=== PATIENT | male | born 1930 | race Caucasian/White ===

== ENCOUNTER 2017-03-10 09:51 | Emergency (ER) | payer MEDICARE, BC ==
[2017-03-10] MEDS ORDERED: Sterile Water 40 ML ONE (12:54)
[2017-03-10 13:49] LABS: Bilirubin Negative (Negative); Blood, Urine Large (Negative); Glucose, Urine (Dipstick) Negative (Negative); Ketone, Urine Negative (Negative); Nitrite Negative (Negative); Protein, Urine (Dipstick) 100 mg/dL (Neg-Trace); Urobilinogen 0.2 mg/dL (0.2-1.0)
[2017-03-10 13:53] LABS: Bacteria/HPF None Seen HPF (None Seen); WBC/HPF 21-50 HPF (0-3)
[2017-03-10 14:12] LABS: Hyaline Casts/LPF 0-3 HYALINE CAST LPF (0-3 Hyaline); RBC/HPF GREATER THAN 50-TNTC HPF (0-3); Transitional Epithelial 0-3 HPF (0-3); Yeast-All Forms None Seen HPF (None Seen)
== END 2017-03-10 14:30 | disposition home or self-care (01) ==
LOC: ERS 09:51
DX: T83.091A Other mechanical complication of indwelling urethral catheter, initial encounter (principal); E78.00 Pure hypercholesterolemia, unspecified; E03.9 Hypothyroidism, unspecified; I10 Essential (primary) hypertension; F32.9 Major depressive disorder, single episode, unspecified; Z86.73 Personal history of transient ischemic attack (TIA), and cerebral infarction without residual deficits
CPT/HCPCS: 51702; 81003; 81015; 87077; 87086; 87186; A4216

== ENCOUNTER 2017-05-17 14:56 | Outpatient (CLI) | payer MEDICARE, BC ==
[2017-05-17 16:28] LABS: Hemoglobin 14.9 g/dL (14.0-18.0); Mean Corpuscular Hemoglobin 33.5 pg (27.0-31.0); Mean Corpuscular Volume 98.4 fl (80.0-94.0); Mean Platelet Volume 7.1 fL (7.4-10.4); Platelet Count 152 thou/uL (130-400); RBC Distribution Width 11.8 % (11.5-14.5); Red Blood Cell (RBC) Count 4.44 mill/uL (4.70-6.10); White Blood Cell (WBC) Count 7.5 thou/uL (4.8-10.8)
[2017-05-17 16:36] LABS: INR-International Normal Ratio 1.1; PTT 30.5 SEC (22.9-36.1); Prothrombin Time 14.8 SEC (12.0-14.7)
[2017-05-17 16:49] LABS: Anion Gap 14 mmol/L (10-20); BUN (Urea Nitrogen) 29 mg/dL (8.4-25.7); Calc. Creatinine Clearance 0 mL/min (70-130); Calcium 9.5 mg/dL (7.8-10.44); Carbon Dioxide 23 mmol/L (23-31); Chloride 110 mmol/L (98-107); Estimated GFR-MDRD Greater than 90; Glucose 94 mg/dL (83-110); Potassium 4.2 mmol/L (3.5-5.1); Sodium 143 mmol/L (136-145)
== END 2017-05-17 14:57 | disposition home or self-care (01) ==
LOC: LABBT 14:56
PROVIDERS: ATTEND Urology
DX: Z01.812 Encounter for preprocedural laboratory examination (principal); N32.0 Bladder-neck obstruction; R33.8 Other retention of urine; N32.2 Vesical fistula, not elsewhere classified
CPT/HCPCS: 87077; 87086; 87186; 93005; 93010

== ENCOUNTER 2017-06-27 10:05 | Outpatient (CLI) | payer MEDICARE, BC ==
[2017-06-27 11:52] LABS: Hemoglobin 14.5 g/dL (14.0-18.0); Mean Corpuscular HGB CONC 34.1 g/dL (32.0-36.0); Mean Corpuscular Hemoglobin 33.5 pg (27.0-31.0); Mean Corpuscular Volume 98.2 fl (80.0-94.0); Mean Platelet Volume 6.7 fL (7.4-10.4); Platelet Count 183 thou/uL (130-400); RBC Distribution Width 11.5 % (11.5-14.5); Red Blood Cell (RBC) Count 4.32 mill/uL (4.70-6.10); White Blood Cell (WBC) Count 6.2 thou/uL (4.8-10.8)
[2017-06-27 11:56] LABS: INR-International Normal Ratio 1.1; Prothrombin Time 14.7 SEC (12.0-14.7)
[2017-06-27 12:14] LABS: Anion Gap 10 mmol/L (10-20); BUN (Urea Nitrogen) 24 mg/dL (8.4-25.7); Calc. Creatinine Clearance 0 mL/min (70-130); Calcium 9.6 mg/dL (7.8-10.44); Carbon Dioxide 26 mmol/L (23-31); Chloride 109 mmol/L (98-107); Estimated GFR-MDRD 81; Glucose 84 mg/dL (83-110); Potassium 4.2 mmol/L (3.5-5.1); Sodium 141 mmol/L (136-145)
== END 2017-06-27 10:06 | disposition home or self-care (01) ==
LOC: LABBT 10:05
PROVIDERS: ATTEND Urology
DX: Z01.812 Encounter for preprocedural laboratory examination (principal); N32.0 Bladder-neck obstruction; R33.9 Retention of urine, unspecified
CPT/HCPCS: 80048; 85027; 85610

== ENCOUNTER 2017-07-04 06:12 | Inpatient (IN) | payer MEDICARE, BC ==
[2017-07-04] MEDS ORDERED: Levofloxacin 500 mg/D5W 100 ml Premix Bag ONE (06:33)
[2017-07-04] MEDS ORDERED: Vancomycin HCl 1.5 GM in Sodium Chloride 0.9% 250 ML 300 ML IVPB SCH (07:00)
[2017-07-04] MEDS ORDERED: Fentanyl 100 MCG/2 ML VIAL ONE (07:05)
[2017-07-04] MEDS ORDERED: Furosemide 20 MG/2 ML VIAL ONE (10:11)
[2017-07-04] MEDS ORDERED: Acetaminophen 500 MG TAB PO PRN (10:29)
[2017-07-04] MEDS ORDERED: B & O PR PRN (10:35)
[2017-07-04] MEDS ORDERED: Promethazine HCl 25 MG/ML VIAL SLOW IVP PRN (11:00)
[2017-07-04] MEDS ORDERED: Promethazine HCl 25 MG/ML VIAL IM PRN (11:00)
[2017-07-04] MEDS ORDERED: Ondansetron HCl/PF 4 MG/2 ML Vial IVP PRN (11:00)
[2017-07-04 11:12] LABS: Hemoglobin 12.2 g/dL (14.0-18.0)
[2017-07-04] MEDS ORDERED: Hydrocortisone 1% Cream 30 GM TUBE TOP PRN (11:15)
[2017-07-04 11:32] LABS: ALT (SGPT) 12 U/L (8-55); AST (SGOT) 16 U/L (5-34); Albumin 3.3 g/dL (3.4-4.8); Alkaline Phosphatase 43 U/L (40-150); Anion Gap 9 mmol/L (10-20); BUN (Urea Nitrogen) 24 mg/dL (8.4-25.7); Bilirubin, Total 0.7 mg/dL (0.2-1.2); Calc. Creatinine Clearance 72 mL/min (70-130); Calcium 8.1 mg/dL (7.8-10.44); Carbon Dioxide 24 mmol/L (23-31); Chloride 112 mmol/L (98-107); Estimated GFR-MDRD 83; Globulin 1.7 g/dL (2.4-3.5); Glucose 104 mg/dL (83-110); Potassium 4.7 mmol/L (3.5-5.1); Sodium 140 mmol/L (136-145)
--- NOTE | 2017-07-04 13:22 | OP ---
DATE OF PROCEDURE: 07/04/2017 PREOPERATIVE DIAGNOSES: Urinary retention, bladder outlet obstruction. POSTOPERATIVE DIAGNOSES: Urinary retention, bladder outlet obstruction. PROCEDURE PERFORMED: Cystoscopy, TURP. SURGEON: Dr. Michael Chan. ANESTHETIC: General. ESTIMATED BLOOD LOSS: Probably 250 mL. PATHOLOGY SENT: Prostatic chips. DRAINS PLACED: 22 [place] 3-way with 60 mL in the balloon hooked up to continuous bladder irrigation. FINDINGS: There is no evidence of stricture disease. The bladder was free of tumor, foreign body, o r stone. There was a very large trilobar BPH with a very, very large median lobe and intravesical ex tension. We resected the median lobe and lobe, this took 2 hours though we did not start righ t lobe. OPERATIVE TECHNIQUE: After obtaining written and verbal consent from the patient after receiving IV antibiotics, he was taken to the operating suite. He was placed in the supine position on the [facility] ent table. PlexiPulses were placed on his lower extremities and turned on. He was given a general a nesthetic, oral intubation, placed in the dorsal lithotomy position and sterilely prepped and draped. Cystoscopy was performed with a 22-[place] sheath. This was well lubricated and passed under direct vision through the male urethra and into the urinary bladder with aid of a video camera and monitor and 30 degree lens. The bladder was filled and emptied a number of times and examined with both a 30 and 70 degree lens. A 24-[place] resectoscope sheath was passed with the visual obturator and 30 deg ree lens into the bladder. An [employer] resectoscope with a gyrus cutting loop and a gyrus generator were used. A 30 degree lenses were used. Landmarks including the ureteral orifices, bladder neck, a nd verumontanum were identified. We very carefully resected the large intravesical lobe off of the b ladder neck and out of the bladder and then we resected the floor from the 5 o'clock to 7 o'clock pos ition. This was taken from bladder neck to just proximal to the verumontanum. Coagulating current w as used to obtain hemostasis. The left lobe was taken down from the 12 o'clock position to the 5 o'c lock position with the same margins. Electrocautery was used to control hemostasis. We elicked out a great number of times because of the number of chips that were present. At this point, there was 2 hours of resection time, so we did not start the right lobe. We repeated cystoscopy. There was no evidence of chips or clots in the bladder. Ureteral orifices and trigone were in normal position and uninjured. Meza catheter was placed with the aid of a catheter guide. Balloon was inflated with 6 0 mL, it was hand irrigated. It was light pink. He was taken out of dorsal lithotomy position. The catheter was placed on his right thigh on mild traction. He was awakened, extubated, and taken by dasha bernardo to the recovery room.
[2017-07-04] MEDS ORDERED: PROPOFOL 200 MG/20 ML VIAL ONE (13:46)
[2017-07-04] MEDS ORDERED: Dexamethasone 20 MG/5 ML VIAL ONE (13:46)
[2017-07-04] MEDS ORDERED: ePHEDrine/0.9% NaCl/PF SYRINGE 50 mg/10 ml ONE (13:46)
[2017-07-04] MEDS ORDERED: Glycopyrrolate 0.2 MG/ML 5 ML SYRINGE ONE (13:46)
[2017-07-04] MEDS ORDERED: Ondansetron HCl/PF 4 MG/2 ML Vial ONE (13:46)
[2017-07-04] MEDS ORDERED: Lidocaine 1% PF 5 ML VIAL ONE (13:46)
--- NOTE | 2017-07-04 15:28 | CON ---
DATE OF CONSULTATION: 07/04/[address] Michael Chan. HISTORY OF PRESENT ILLNESS: The patient is postop transurethral resection of the prostate and cystos copy. Patient's problems began when he had a hernia surgery several months ago which was complicated by urinary retention, necessity of issuing an indwelling Meza catheter for hydronephrosis. He has eventually required prostate surgery for relief of the obstruction. He has had no fever, no chills, no chest pain, no shortness of breath, no nausea. PAST MEDICAL HISTORY: He has had situational depression over this period of time. He has hypertensi on, coronary artery disease, post-PCI 5-6 years ago, and dyslipidemia. He had CVA 9 months ago. We left him with some very minor residual right-sided weakness. He has chronic back pain. CURRENT MEDICATIONS: Include Lexapro 20 mg a day, finasteride 5 mg a day, Cipro 500 mg twice a day, Remeron 7.5 mg a day, vitamin C, Tylenol with Codeine, Prolensa 1 drop left eye b.i.d., atenolol 25 m g a day, fish oil 1000 mg a day, multivitamin, levothyroxine 88 mcg a day, pitavastatin 4 mg a day, C oenzyme Q10 one capsule a day, timolol maleate 0.5% ophthalmic gel 1 drop left eye twice a day, Floma x 0.4 mg a day. ALLERGIES: To LISINOPRIL/MARY INHIBITORS, angioedema. FAMILY HISTORY: Mother had CVA and is . Father had coronary artery disease, [place] and is decea sed. SOCIAL HISTORY: . at bedside and surrogate decision maker. No tobacco, no alcohol. Of note, he does have very occasional glass of wine. REVIEW OF SYSTEMS: GENERAL: No headaches, dizziness or fainting. EYES: He wears glasses. He sees Dr. Hurst for retinal problem and has a history of glaucoma. He has no double vision, flashing light s. EAR, NOSE, AND THROAT: He is hard of hearing. He has hearing aids. No pain or drainage in his ears. No nosebleeds. He does have some dysphagia on thin liquids and occasionally coughs after drin darlene thin liquids, residual of his stroke. CARDIAC: No chest pain, orthopnea or paroxysmal nocturna l dyspnea. RESPIRATORY: No cough, wheezing or asthma. GASTROINTESTINAL: No nausea, vomiting, abdo mary lou pain, diarrhea. GENITOURINARY: See present illness. No hematuria. MUSCULOSKELETAL: No pain or swelling in his arms or legs. NEUROLOGIC: Some mild residual weakness on the right, post-CVA 9 months ago. PSYCHIATRIC: He has some endogenous depression, mild, it has been exaggerated with his current circumstances. SKIN: No bruising, bleeding or rash. HEME/LYMPH: No tender or swollen lymp h nodes in axilla, inguinal or cervical area. PHYSICAL EXAMINATION: GENERAL: Alert, oriented and cooperative. is at bedside, hard of hearing. VITAL SIGNS: Blood pressure 100/70, pulse 80, and respirations 16. HEENT: Examination of his head, eyes, ears, nose, and throat reveal pupils are equal, round, and rehan ctive to light. Extraocular movements are intact. Sclerae are white. Tympanic membrane is clear. Nose is clear. Throat is clear. Dental hygiene is good. NECK: Supple, without jugular venous distention, adenopathy, thyromegaly. CHEST: Clear to auscultation and percussion. HEART: Had regular rate and rhythm. First and second heart sounds are clear. There are no murmurs, no gallops. ABDOMEN: Soft, bowel sounds are normal. There is no hepatosplenomegaly, no mass, no rebound. EXTREMITIES: Reveal no cyanosis, clubbing or edema. PULSES: Carotid, radial, femoral, and dorsalis pedis pulses intact. SKIN: Warm and dry without bruises or rash. HEME/LYMPH: Reveal no tender or swollen lymph nodes in axilla, inguinal or cervical area. NEUROLOGIC: He had minimal alteration of [id number] on the right. Deep tendon reflexes were essentially symmetric. Strength was essentially symmetric. IMAGING DATA AND LABORATORY DATA: Electrocardiogram, sinus rhythm with sinus bradycardia, right bund le branch block reviewed by me. Hemoglobin 12.2. Comp metabolic profile normal except for chloride of 112 and some minor albumin globulin low levels. ADMITTING DIAGNOSES: Hydronephrosis, urinary retention, hypertension, dyslipidemia, coronary artery disease, and depression. PLAN: The patient is doing well postop. Continue selected home medicines. We will follow with you.
[2017-07-04] MEDS: D5 1/2 NS w/20 mEq KCL 1,000 ML IV SCH ×2 (15:42→20:16)
[2017-07-04] MEDS: HYDROcodone/Acetaminophen 5/325 mg Tablet PO PRN (17:43)
[2017-07-04] MEDS: Docusate 100 MG CAP PO SCH (20:11)
[2017-07-04] MEDS: Mirtazapine 15 MG TAB PO SCH (20:11)
[2017-07-04] MEDS ORDERED: Timolol 0.5% Ophth Soln 5 ml Bottle L EYE SCH ×2 (21:00→22:15)
[2017-07-04] MEDS ORDERED: BROMFENAC SODIUM 0.07% L EYE SCH (22:15)
[2017-07-04] MEDS ORDERED: Pitavastatin Calcium [Livalo] 4 MG PO SCH (22:15)
[2017-07-05] MEDS: Levothyroxine Sodium 88 MCG TAB PO SCH (05:59)
[2017-07-05] MEDS: D5 1/2 NS w/20 mEq KCL 1,000 ML IV SCH (06:07)
[2017-07-05] MEDS: HYDROcodone/Acetaminophen 5/325 mg Tablet PO PRN (06:32)
[2017-07-05] MEDS ORDERED: Ubidecarenone 50 MG CAP PO SCH (09:00)
[2017-07-05] MEDS: Finasteride 5 MG TAB PO SCH (09:33)
[2017-07-05] MEDS: Ubidecarenone 50 MG CAP PO SCH (09:33)
[2017-07-05] MEDS: Atenolol 25 MG TAB PO SCH (09:33)
[2017-07-05] MEDS: Docusate 100 MG CAP PO SCH ×2 (09:33→20:47)
[2017-07-05] MEDS: BROMFENAC SODIUM 0.07% L EYE SCH ×2 (09:34→22:09)
[2017-07-05] MEDS: Timolol 0.5% Ophth Soln 5 ml Bottle L EYE SCH ×2 (09:35→22:08)
--- NOTE | 2017-07-05 14:52 | PDOC.PN ---
- Subjective Encounter Start Date: 07/05/17 Encounter Start Time: 09:50 -: old records requested/rev Pt seen and examined, chart reviewed in its entirety, this is my first visit with this patient No F/C, no N/V/D/C, no CP, no SOB CBI off, urine pink but clear. plan to pull catheter in AM if stable and possible D/C tomorrow 10 point ROS performed and neg for all systems except as per HPI - Objective MAR Reviewed: Yes Vital Signs & Weight: Vital Signs (12 hours) Temp Pulse Resp BP BP Pulse Ox 07/05/17 11:30 98.2 F 72 20 123/71 96 07/05/17 09:33 68 170/80 H 07/05/17 07:20 98.2 F 68 16 155/73 H 95 07/05/17 03:00 98.4 F 62 20 137/72 97 Weight Weight 6.243 oz I&O: 07/04/17 07/05/17 07/06/17 06:59 06:59 06:59 Intake Total 4430 Output Total 6685 Balance -2255 Result Diagrams: 07/04/17 10:39 07/04/17 10:39 Radiology Reviewed by me: Yes EKG Reviewed by me: Yes Phys Exam - Physical Examination Constitutional: NAD HEENT: PERRLA, moist MMs, sclera anicteric, oral pharynx no lesions Neck: no nodes, no JVD, supple, full ROM Respiratory: no wheezing, no rales, no rhonchi, clear to auscultation bilateral Cardiovascular: RRR, no significant murmur, no rub Gastrointestinal: soft, non-tender, no distention, positive bowel sounds Musculoskeletal: no edema, pulses present Neurological: non-focal, normal sensation, moves all 4 limbs Lymphatic: no nodes Psychiatric: normal affect, A&O x 3 Skin: no rash, normal turgor, cap refill <2 seconds Dx/Plan (1) HTN (hypertension) Code(s): I10 - ESSENTIAL (PRIMARY) HYPERTENSION Status: Chronic Qualifiers: Hypertension type: essential hypertension Qualified Code(s): I10 - Essential (primary) hypertension (2) HLD (hyperlipidemia) Code(s): E78.5 - HYPERLIPIDEMIA, UNSPECIFIED Status: Chronic Qualifiers: Hyperlipidemia type: unspecified Qualified Code(s): E78.5 - Hyperlipidemia , unspecified (3) CAD (coronary artery disease) Code(s): I25.10 - ATHSCL HEART DISEASE OF [place] CORONARY ARTERY W/O ANG PCTRS Status: Chronic Qualifiers: Coronary Disease-Associated Artery/Lesion type: [place] artery [place] vs. transplanted heart: [place] heart Associated angina: without angina Qualified Code(s): I25.10 - Atherosclerotic heart disease of [place] coronary artery without angina pectoris (4) Depression Code(s): F32.9 - MAJOR DEPRESSIVE DISORDER, SINGLE EPISODE, UNSPECIFIED Status : Chronic Qualifiers: Depression Type: unspecified Qualified Code(s): F32.9 - Major depressive disorder, single episode, unspecified (5) BPH (benign prostatic hyperplasia) Code(s): N40.0 - BENIGN PROSTATIC HYPERPLASIA WITHOUT LOWER URINRY TRACT SYMP Status: Acute Qualifiers: Lower urinary tract symptom presence: symptoms present Lower urinary tract symptom detail: urinary obstruction Qualified Code(s): N40.1 - Benign prostatic hyperplasia with lower urinary tract symptoms; N13.8 - Other obstructive and reflux uropathy; N13.8 - Other obstructive and reflux uropathy Comment: POD 1 TURP - Plan cont current plan of care, plan discussed w/ family, gonsalves catheter, continue antibiotics, out of bed/ambulate * .
[2017-07-05] MEDS: Mirtazapine 15 MG TAB PO SCH (20:47)
[2017-07-05] MEDS: Pitavastatin Calcium [Livalo] 4 MG PO SCH (22:08)
[2017-07-06] MEDS: Levothyroxine Sodium 88 MCG TAB PO SCH (06:16)
[2017-07-06] MEDS: HYDROcodone/Acetaminophen 5/325 mg Tablet PO PRN (06:16)
[2017-07-06] MEDS: Ubidecarenone 50 MG CAP PO SCH (08:19)
[2017-07-06] MEDS: Atenolol 25 MG TAB PO SCH (08:19)
[2017-07-06] MEDS: Finasteride 5 MG TAB PO SCH (08:20)
[2017-07-06] MEDS: Docusate 100 MG CAP PO SCH ×2 (08:20→21:06)
[2017-07-06] MEDS: BROMFENAC SODIUM 0.07% L EYE SCH ×2 (08:21→21:07)
[2017-07-06] MEDS: Timolol 0.5% Ophth Soln 5 ml Bottle L EYE SCH ×2 (08:23→21:07)
--- NOTE | 2017-07-06 14:28 | PDOC.PN ---
- Subjective Encounter Start Date: 07/06/17 Encounter Start Time: 09:00 pt feeling better, elevated BP overnight, better with prn clinidine and hydralazine today. Possible discharg epater, Poley still in though, urine clearing nicely. no CP or SOb, no N/V/D/C, no F/C 10 point ROS performed and neg for all systems except as per HPI - Objective MAR Reviewed: Yes Vital Signs & Weight: Vital Signs (12 hours) Temp Pulse Resp BP BP BP Pulse Ox 07/06/17 11:15 98.6 F 55 L 16 154/78 H 96 07/06/17 08:19 63 156/84 H 07/06/17 07:55 98.6 F 64 16 93 L 07/06/17 07:15 98.6 F 64 16 156/84 H 93 L 07/06/17 07:07 168/84 H 07/06/17 03:38 97.8 F 62 16 179/82 H 96 Weight Weight 6.243 oz I&O: 07/05/17 07/06/17 07/07/17 06:59 06:59 06:59 Intake Total 4430 1780 Output Total 6685 4000 Balance -2255 -2220 Result Diagrams: 07/04/17 10:39 07/04/17 10:39 Phys Exam - Physical Examination Constitutional: NAD HEENT: PERRLA, moist MMs, sclera anicteric, oral pharynx no lesions Neck: no nodes, no JVD, supple, full ROM Respiratory: no wheezing, no rales, no rhonchi, clear to auscultation bilateral Cardiovascular: RRR, no significant murmur, no rub Gastrointestinal: soft, non-tender, no distention, positive bowel sounds Musculoskeletal: no edema, pulses present Neurological: non-focal, normal sensation, moves all 4 limbs Lymphatic: no nodes Psychiatric: normal affect, A&O x 3 Skin: no rash, normal turgor, cap refill <2 seconds Dx/Plan (1) HTN (hypertension) Code(s): I10 - ESSENTIAL (PRIMARY) HYPERTENSION Status: Chronic Qualifiers: Hypertension type: essential hypertension Qualified Code(s): I10 - Essential (primary) hypertension (2) HLD (hyperlipidemia) Code(s): E78.5 - HYPERLIPIDEMIA, UNSPECIFIED Status: Chronic Qualifiers: Hyperlipidemia type: unspecified Qualified Code(s): E78.5 - Hyperlipidemia , unspecified (3) CAD (coronary artery disease) Code(s): I25.10 - ATHSCL HEART DISEASE OF [place] CORONARY ARTERY W/O ANG PCTRS Status: Chronic Qualifiers: Coronary Disease-Associated Artery/Lesion type: [place] artery [place] vs. transplanted heart: [place] heart Associated angina: without angina Qualified Code(s): I25.10 - Atherosclerotic heart disease of [place] coronary artery without angina pectoris (4) Depression Code(s): F32.9 - MAJOR DEPRESSIVE DISORDER, SINGLE EPISODE, UNSPECIFIED Status : Chronic Qualifiers: Depression Type: unspecified Qualified Code(s): F32.9 - Major depressive disorder, single episode, unspecified (5) BPH (benign prostatic hyperplasia) Code(s): N40.0 - BENIGN PROSTATIC HYPERPLASIA WITHOUT LOWER URINRY TRACT SYMP Status: Acute Qualifiers: Lower urinary tract symptom presence: symptoms present Lower urinary tract symptom detail: urinary obstruction Qualified Code(s): N40.1 - Benign prostatic hyperplasia with lower urinary tract symptoms; N13.8 - Other obstructive and reflux uropathy; N13.8 - Other obstructive and reflux uropathy Comment: POD 1 TURP - Plan * .
[2017-07-06] MEDS ORDERED: hydrALAZINE 20 MG/ML VIAL SLOW IVP PRN (16:02)
[2017-07-06] MEDS ORDERED: cloNIDine 0.1 MG TAB PO SCH (16:15)
[2017-07-06] MEDS: Mirtazapine 15 MG TAB PO SCH (21:06)
[2017-07-06] MEDS: Pitavastatin Calcium [Livalo] 4 MG PO SCH (21:06)
[2017-07-07] MEDS: Levothyroxine Sodium 88 MCG TAB PO SCH (05:39)
[2017-07-07] MEDS: Docusate 100 MG CAP PO SCH (08:28)
[2017-07-07] MEDS: Ubidecarenone 50 MG CAP PO SCH (08:28)
[2017-07-07] MEDS: Finasteride 5 MG TAB PO SCH (08:29)
[2017-07-07] MEDS: Atenolol 25 MG TAB PO SCH (08:29)
[2017-07-07] MEDS: BROMFENAC SODIUM 0.07% L EYE SCH (08:31)
[2017-07-07] MEDS: Timolol 0.5% Ophth Soln 5 ml Bottle L EYE SCH (08:31)
[2017-07-07] MEDS: HYDROcodone/Acetaminophen 5/325 mg Tablet PO PRN (10:14)
[2017-07-07 10:18] VITALS: BP 152/57; TEMP 98.3
--- NOTE | 2017-07-07 15:12 | PDOC.PN ---
- Subjective Encounter Start Date: 07/07/17 Encounter Start Time: 10:30 Pt maris nahunmandie, arcelia gonsalves out, discharging this morning no F/C, no N/V/D/C, no CP or SOB, BP up overnight, better with po meds and PRN hydralazine 10 point ROS performed and neg for all systems except as per HPI - Objective MAR Reviewed: Yes Vital Signs & Weight: Vital Signs (12 hours) Temp Pulse Resp BP BP BP Pulse Ox 07/07/17 10:17 98.3 F 64 18 152/57 H 96 07/07/17 08:29 62 157/80 H 07/07/17 08:20 97.8 F 62 20 93 L 07/07/17 07:12 97.8 F 62 20 157/80 H 93 L 07/07/17 04:42 98.6 F 59 L 18 152/70 H 94 L Weight Weight 6.243 oz I&O: 07/06/17 07/07/17 07/08/17 06:59 06:59 06:59 Intake Total 1780 2230 Output Total 4000 4425 Balance -2220 -219 Result Diagrams: 07/04/17 10:39 07/04/17 10:39 Phys Exam - Physical Examination Constitutional: NAD HEENT: PERRLA, moist MMs, sclera anicteric, oral pharynx no lesions Neck: no nodes, no JVD, supple, full ROM Respiratory: no wheezing, no rales, no rhonchi, clear to auscultation bilateral Cardiovascular: RRR, no significant murmur, no rub Gastrointestinal: soft, non-tender, no distention, positive bowel sounds Musculoskeletal: no edema, pulses present Neurological: non-focal, normal sensation, moves all 4 limbs Lymphatic: no nodes Psychiatric: normal affect, A&O x 3 Skin: no rash, normal turgor, cap refill <2 seconds Dx/Plan (1) HTN (hypertension) Code(s): I10 - ESSENTIAL (PRIMARY) HYPERTENSION Status: Chronic Qualifiers: Hypertension type: essential hypertension Qualified Code(s): I10 - Essential (primary) hypertension (2) HLD (hyperlipidemia) Code(s): E78.5 - HYPERLIPIDEMIA, UNSPECIFIED Status: Chronic Qualifiers: Hyperlipidemia type: unspecified Qualified Code(s): E78.5 - Hyperlipidemia , unspecified (3) CAD (coronary artery disease) Code(s): I25.10 - ATHSCL HEART DISEASE OF [place] CORONARY ARTERY W/O ANG PCTRS Status: Chronic Qualifiers: Coronary Disease-Associated Artery/Lesion type: [place] artery [place] vs. transplanted heart: [place] heart Associated angina: without angina Qualified Code(s): I25.10 - Atherosclerotic heart disease of [place] coronary artery without angina pectoris (4) Depression Code(s): F32.9 - MAJOR DEPRESSIVE DISORDER, SINGLE EPISODE, UNSPECIFIED Status : Chronic Qualifiers: Depression Type: unspecified Qualified Code(s): F32.9 - Major depressive disorder, single episode, unspecified (5) BPH (benign prostatic hyperplasia) Code(s): N40.0 - BENIGN PROSTATIC HYPERPLASIA WITHOUT LOWER URINRY TRACT SYMP Status: Acute Qualifiers: Lower urinary tract symptom presence: symptoms present Lower urinary tract symptom detail: urinary obstruction Qualified Code(s): N40.1 - Benign prostatic hyperplasia with lower urinary tract symptoms; N13.8 - Other obstructive and reflux uropathy; N13.8 - Other obstructive and reflux uropathy Comment: POD 1 TURP - Plan cont current plan of care * . home toda,y resume home meds, follow up with PCP on discharge
== END 2017-07-07 10:45 | disposition home or self-care (01) | DRG 666 ==
LOC: SDC 06:12 → SURG A 11:33
PROVIDERS: ADMIT Urology; ATTEND Urology
PROC: 0VT08ZZ Resection of Prostate, Via Natural or Artificial Opening Endoscopic (ICD-10-PCS; principal; 2017-07-04)
PROC: 0TJB8ZZ Inspection of Bladder, Via Natural or Artificial Opening Endoscopic (ICD-10-PCS; 2017-07-04)
DX: N32.0 Bladder-neck obstruction (principal); N13.8 Other obstructive and reflux uropathy; N40.1 Benign prostatic hyperplasia with lower urinary tract symptoms; I69.351 Hemiplegia and hemiparesis following cerebral infarction affecting right dominant side; N13.30 Unspecified hydronephrosis; Z95.1 Presence of aortocoronary bypass graft; E78.5 Hyperlipidemia, unspecified; I10 Essential (primary) hypertension; R33.8 Other retention of urine; I25.10 Atherosclerotic heart disease of native coronary artery without angina pectoris; F32.9 Major depressive disorder, single episode, unspecified
CPT/HCPCS: 36415; 80053; 85018; 88305; J1100; J1940; J1956; J2001; J2405; J2704; J3010; J3370; J7050

== ENCOUNTER 2018-11-29 15:38 | Inpatient (IN) | payer MEDICARE, BC ==
[2018-11-29] MEDS ORDERED: Ondansetron PF 4 MG/2 ML Vial ONE (15:57)
[2018-11-29] MEDS ORDERED: Morphine 2 MG/ML SYRINGE ONE ×2 (15:57→17:59)
--- NOTE | 2018-11-29 16:26 | CT ---
Head CT without contrast 11/29/2018: COMPARISON: 11/24/2016 HISTORY: Fall, trauma, pain TECHNIQUE: Axial CT imaging at 5 mm intervals from vertex through skull base without contrast FINDINGS: The visualized paranasal sinuses and mastoid air cells are well aerated. No displaced liz rial fracture is identified. There is atherosclerotic calcification involving the distal left vertebral artery and bilateral mckenna nous carotid arteries. There is supraclinoid ICA atherosclerotic calcification on the right. There is diffuse cerebral volume loss with associated prominence of the CSF containing spaces. Perive ntricular hypodensity suggests stable small vessel disease. No intracranial hemorrhage, midline shift, or mass effect. No significant interval change IMPRESSION: Stable head CT-no acute findings.
--- NOTE | 2018-11-29 16:38 | RAD ---
Right hip 2 views HISTORY: Fall. Right hip injury. FINDINGS: Prominent varus angulation at a femoral neck fracture. Internal rotation of the femoral hea d. Mild degenerative changes of the hip IMPRESSION: Right hip fracture.
--- NOTE | 2018-11-29 16:39 | RAD ---
AP pelvis one view HISTORY: Fall. Pelvic injury. FINDINGS: Varus angulation and a right femoral neck fracture. Mild degenerative changes of each hip. Sacral alae and pelvic rings are intact. Degenerative changes lower lumbar spine with osteophytosis of the sacroiliac joints. IMPRESSION: Right hip fracture.
--- NOTE | 2018-11-29 16:40 | RAD ---
Right elbow 4 views HISTORY: Right elbow injury. FINDINGS: Radiocapitellar alignment is maintained. Mild joint space narrowing. Prominent osteophytosi s. No acute fracture, dislocation, or fluid distention of the joint capsule. IMPRESSION: Osteoarthritic changes right elbow. No acute osseous abnormalities are demonstrated.
[2018-11-29] MEDS ORDERED: Dextrose 50% Abboject 50 ML SYRINGE SLOW IVP PRN (17:06)
[2018-11-29] MEDS ORDERED: HumaLOG 300 UNITS/3 ML VIAL SC PRN (17:06)
[2018-11-29] MEDS ORDERED: Ondansetron PF 4 MG/2 ML Vial IVP PRN (17:06)
[2018-11-29] MEDS ORDERED: Dextrose 5% in Water 1,000 ML IV PRN (17:06)
[2018-11-29] MEDS ORDERED: traMADol HCl 50 MG TAB PO PRN (17:15)
[2018-11-29] MEDS ORDERED: Acetaminophen 1,000 MG in Premix Bag 1 BAG IVPB SCH (17:15)
[2018-11-29 17:17] LABS: #Eosinphils 0.1 thou/uL (0.0-0.7); #Lymphocytes 1.8 thou/uL (1.20-3.40); #Monocytes 0.7 thou/uL (0.11-0.59); #Neutrophils 10.4 thou/uL (1.40-6.50); %Basophils 0.1 % (0.0-1.0); %Eosinophils 0.8 % (0.0-10.0); %Lymphocytes 13.5 % (21.0-51.0); %Monocytes 5.7 % (0.0-10.0); %Neutrophils 79.9 % (42.0-75.0); Hemoglobin 14.7 g/dL (14.0-18.0); Mean Corpuscular HGB CONC 32.9 g/dL (32.0-36.0); Mean Corpuscular Hemoglobin 33.2 pg (27.0-31.0); Mean Platelet Volume 7.1 fL (7.4-10.4); Platelet Count 172 thou/uL (130-400); RBC Distribution Width 11.3 % (11.5-14.5); Red Blood Cell (RBC) Count 4.44 mill/uL (4.70-6.10)
[2018-11-29 17:40] LABS: ALT (SGPT) 18 U/L (8-55); AST (SGOT) 29 U/L (5-34); Albumin 3.7 g/dL (3.4-4.8); Alkaline Phosphatase 44 U/L (40-150); Anion Gap 12 mmol/L (10-20); BUN (Urea Nitrogen) 27 mg/dL (8.4-25.7); Bilirubin, Total 0.6 mg/dL (0.2-1.2); Calc. Creatinine Clearance 0 mL/min (70-130); Calcium 9.4 mg/dL (7.8-10.44); Carbon Dioxide 20 mmol/L (23-31); Chloride 112 mmol/L (98-107); Estimated GFR-MDRD 77; Globulin 2.7 g/dL (2.4-3.5); Glucose 79 mg/dL (83-110); Potassium 4.1 mmol/L (3.5-5.1); Protein, Total 6.4 g/dL (5.8-8.1); Sodium 140 mmol/L (136-145)
[2018-11-29] MEDS ORDERED: Acetaminophen 1,000 MG in Premix Bag 1 BAG IVPB ONE (17:45)
--- NOTE | 2018-11-29 17:46 | RAD ---
AP CHEST: 11/29/18 HISTORY: Preop evaluation. No evidence of infiltrate. Heart is upper normal size. Vascularity is mildly prominent. No effusion o r evidence of significant edema. IMPRESSION: No acute lung process. POS: OFF
[2018-11-29] MEDS ORDERED: Ketorolac Tromethamine 30 MG/ML VIAL ONE (17:52)
[2018-11-29] MEDS ORDERED: Dextrose 5 % And 0.9 % NaCl 1,000 ML IV SCH (18:45)
[2018-11-29 18:47] VITALS: BMI 24.6
[2018-11-29] MEDS: Mirtazapine 15 MG TAB PO SCH (20:42)
[2018-11-29] MEDS: Famotidine/PF 20 mg/2ml Vial SLOW IVP SCH (20:43)
[2018-11-29] MEDS: hydrALAZINE 20 MG/ML VIAL SLOW IVP PRN (20:43)
[2018-11-29] MEDS: Senokot S 8.6-50 MG TAB PO SCH (20:43)
[2018-11-29] MEDS ORDERED: Atorvastatin Calcium 10 MG TAB PO SCH (21:00)
[2018-11-29] MEDS ORDERED: Ketorolac Tromethamine 30 MG/ML VIAL IVP SCH (22:00)
[2018-11-29] MEDS: Cyclobenzaprine 10 MG TAB PO PRN (22:13)
[2018-11-29] MEDS: Acetaminophen 1,000 MG in Premix Bag 1 BAG IVPB SCH (23:52)
[2018-11-29] MEDS ORDERED: Cyclobenzaprine 10 MG TAB PO SCH (23:59)
[2018-11-30] MEDS: Morphine 2 MG/ML SYRINGE SLOW IVP PRN ×2 (00:05→12:51)
--- NOTE | 2018-11-30 00:05 | PRG ---
DATE OF SERVICE: 11/29/2018 SUBJECTIVE: The patient is currently on the surgical floor. He has been admitted earlier today, status post ground level fall in which he sustained a right hip fracture. He is planned to have surgical intervention tomorrow and will be n.p.o. after midnight. At the time of my exam, he had no complaints other than occasional spasms which cause his hip to hurt. I discussed with him his pain regimen and that we will add a muscle relaxer to it. Otherwise, he is doing well. His spouse is at bedside and I was able to answer all of their questions as best as I could regarding his surgery and recovery. OBJECTIVE: VITAL SIGNS: The patient still shows some hypertension with blood pressure of 190/92. We resumed his home medications and we will continue to follow this. Otherwise, the patient is doing well. ASSESSMENT AND PLAN: 1. Status post ground level fall. 2. Right hip fracture, awaiting surgical intervention. PLAN: Plan will be to continue supportive care, pain management, n.p.o. after midnight, and postoperatively work with Physical and Occupational Therapy. Job ID: [id number]
[2018-11-30 04:35] LABS: #Eosinphils 0.1 thou/uL (0.0-0.7); #Lymphocytes 0.9 thou/uL (1.20-3.40); #Monocytes 0.4 thou/uL (0.11-0.59); #Neutrophils 6.2 thou/uL (1.40-6.50); %Eosinophils 1.7 % (0.0-10.0); %Monocytes 4.6 % (0.0-10.0); %Neutrophils 81.8 % (42.0-75.0); Hemoglobin 13.4 g/dL (14.0-18.0); Mean Corpuscular Hemoglobin 33.8 pg (27.0-31.0); Mean Corpuscular Volume 96.6 fL (78.0-98.0); Mean Platelet Volume 6.7 fL (7.4-10.4); Platelet Count 128 thou/uL (130-400); Red Blood Cell (RBC) Count 3.98 mill/uL (4.70-6.10); White Blood Cell (WBC) Count 7.6 thou/uL (4.8-10.8)
[2018-11-30 04:42] LABS: Anion Gap 10 mmol/L (10-20); BUN (Urea Nitrogen) 24 mg/dL (8.4-25.7); Calc. Creatinine Clearance 65 mL/min (70-130); Calcium 8.8 mg/dL (7.8-10.44); Carbon Dioxide 24 mmol/L (23-31); Chloride 110 mmol/L (98-107); Estimated GFR-MDRD 82; Glucose 141 mg/dL (83-110); Magnesium 1.9 mg/dL (1.6-2.6); Phosphorus 3.4 mg/dL (2.3-4.7); Potassium 3.6 mmol/L (3.5-5.1); Sodium 140 mmol/L (136-145)
[2018-11-30] MEDS: Levothyroxine Sodium 88 MCG TAB PO SCH (05:33)
[2018-11-30] MEDS: Ketorolac Tromethamine 30 MG/ML VIAL IVP SCH ×3 (05:33→21:39)
[2018-11-30] MEDS: Acetaminophen 1,000 MG in Premix Bag 1 BAG IVPB SCH ×3 (06:42→22:39)
[2018-11-30] MEDS ORDERED: CEFAZOLIN 2 GM in Premix Bag 1 BAG IVPB SCH (07:15)
--- NOTE | 2018-11-30 07:30 | CON ---
DATE OF CONSULTATION: 11/29/2018 REQUESTING PHYSICIAN: Pramod Xie DO BRIEF HISTORY OF PRESENT ILLNESS: The patient is an 88-year-old gentleman, who was examined in his hospital bed at [facility] following a fall. He reports that on the day of admission, he was home, when he was pulling on a hose, reports that he got "tangled up" in the hose and when it recoiled, he fell landing on his right side. He reports immediate pain and inability to ambulate. The patient reports that in the emergency room, he did have some numbness of the right foot; however, this has now resolved. He denies loss of consciousness or any other injuries other than this right hip injury. Workup included an x-ray of the right hip as well as AP pelvis as well as x-ray of the right elbow. The right elbow just showed some mild degenerative changes. The pelvis and hip x-ray showed a displaced fracture at the base of the femoral neck. As such, the patient now admitted to the Trauma Service with Orthopedic consultation requested. PAST MEDICAL HISTORY: Remarkable for hyperlipidemia and high cholesterol. He also has a significant additional cardiac history of hypertension with previous stent placement as well as a recent CVA in July 2016 with some mild residual left-sided weakness and slight slurred speech, although he does communicate well. Also history of hypothyroidism and history of benign prostatic hypertrophy. PAST SURGICAL HISTORY: Includes stent placement, transurethral resection of prostate, appendectomy, and herniorrhaphy x2. MEDICATIONS: Include; 1. Aspirin. 2. Prolensa. 3. Atenolol. 4. Synthroid. 5. Simvastatin. 6. Nexium. ALLERGIES: LISINOPRIL. FAMILY HISTORY: Noncontributory for this fracture. SOCIAL HISTORY: He lives at home with his . He drinks socially and with dinner. There is no smoking history. No drug history. REVIEW OF SYSTEMS: The patient denies recent fevers, chills, or sweats. Denies chest pain or shortness of breath. He currently denies any numbness or tingling. PHYSICAL EXAMINATION: VITAL SIGNS: Temperature of 98, heart rate of 63, respiratory rate of 18, and blood pressure 157/76. HEENT: Atraumatic and normocephalic. I do not appreciate any asymmetry of facial muscles. NECK: Nontender. HEART: Shows an irregular rate and rhythm, but without murmur. LUNGS: Clear to auscultation bilaterally with good breath sounds. ABDOMEN: Soft and nontender. PELVIS: Stable to compression, but with any type of manipulation around the pelvis, he complains of right groin pain. EXTREMITIES: The right lower extremity is remarkable for hip that is held in external rotation is mildly shortened. He is holding it with his knee flexed 90 degrees and tucked under the contralateral leg. The left leg appears atraumatic as do the upper extremities. IMAGING STUDIES: Plain x-rays are as described in the history of present illness. LABORATORY DATA: He was found to have a white count of 13, hematocrit of 44.7 and 172,000 platelets. ASSESSMENT: The patient is an 88-year-old gentleman, status post ground level fall sustaining right femoral neck fracture with displacement. PLAN: At this time, the patient will be taken to the operating room tomorrow for anticipated right hip hemiarthroplasty. I briefly discussed with the patient risks and benefits. A formal written consent will be obtained tomorrow prior to surgery. Job ID: [id number]
--- NOTE | 2018-11-30 07:51 | HP ---
CHIEF COMPLAINT: Right hip pain after ground-level fall. HISTORY OF PRESENT ILLNESS: The patient was walking on the yard when he tripped on a hose and fell toward the right side of his body. He did not hit his head. He denied loss of consciousness. He went to the emergency via EMS, en route vital was stable except blood pressure is 185/97. The patient reports excruciated pain from R hip, and some pain from abrasion of the right elbow. No other complaint. Patient had a history of 2 times stroke 1-2 years ago, which cause his right side is weaker than left side. He was ordered to use walker or can at home, but he refused. He chose to do out patient PT. He sustained a few others falls this month due to R side weakness and instability. He denied dizziness or LOC before falling PAST MEDICAL HISTORY: Previous stroke , recovered BPH TURP HTN ABD hernia repaired REVIEW OF SYSTEMS: Noncontributory except as per H and P. PHYSICAL EXAMINATION: VITAL SIGNS: Blood pressure 170/90, respiratory rate is 20, pulse 64, O2 sat is 95% over 2 L of oxygen, and temperature 98. HEENT: Atraumatic and normocephalic. NECK: Normal range of motion. Trachea midline. RESPIRATORY: Chest same, normal . No respiratory distress. Chest expansion equal bilaterally. Breath sounds clear bilaterally. CARDIOVASCULAR: Regular rate and rhythm. No murmur. Heart sounds normal. ABDOMEN: Abdomen is soft, nondistended. Bowel sounds normal. EXTREMITIES: Abrasion of the right elbow, minimum. Limited range of motion on the right lower extremity due to pain. NEUROVASCULAR: Intact x4. BACK: Normal inspection. Normal range of motion. No tenderness. NEUROLOGIC: No neuro deficits. DIAGNOSES: 1. Status post ground-level fall. 2. Right femoral neck fracture. 3. History of hypertension; depression; BPH with transurethral resection of the prostate surgery; history of previous stroke, recover; history of abdominal hernia surgery with mesh Job ID: [id number] [facility] [place] [facility]
[2018-11-30] MEDS ORDERED: Aspirin 81 mg Enteric Coated Tablet PO SCH (09:00)
[2018-11-30] MEDS ORDERED: Thiamine 100 MG TAB PO SCH (09:00)
[2018-11-30] MEDS: Atenolol 25 MG TAB PO SCH (09:05)
[2018-11-30] MEDS: Amlodipine 5 MG TAB PO SCH (09:06)
[2018-11-30] MEDS: Ascorbic Acid 500 mg Chewable Tablet PO SCH (09:07)
[2018-11-30] MEDS: Polyethylene Glycol 3350 17 GM Packet PO SCH (09:08)
[2018-11-30] MEDS: Multivitamin W/ Minerals 1 TAB PO SCH (09:08)
[2018-11-30] MEDS: Famotidine/PF 20 mg/2ml Vial SLOW IVP SCH ×2 (09:08→21:43)
[2018-11-30] MEDS: Escitalopram Oxalate 20 mg Tablet PO SCH (09:08)
[2018-11-30] MEDS: Folic Acid 1 MG TAB PO SCH (09:08)
[2018-11-30] MEDS: Senokot S 8.6-50 MG TAB PO SCH ×2 (09:09→21:35)
[2018-11-30] MEDS: Timolol 0.5% Ophth Soln 5 ml Bottle L EYE SCH ×2 (09:10→21:36)
[2018-11-30] MEDS: Sodium Chloride 0.9% 1,000 ML IV SCH (09:47)
[2018-11-30] MEDS ORDERED: Ondansetron PF 4 MG/2 ML Vial ONE (11:25)
[2018-11-30] MEDS ORDERED: PROPOFOL 200 MG/20 ML VIAL ONE (11:25)
[2018-11-30] MEDS ORDERED: Dexamethasone 20 MG/5 ML VIAL ONE (11:25)
[2018-11-30] MEDS ORDERED: Lidocaine 1% PF 5 ML VIAL ONE (11:25)
[2018-11-30] MEDS ORDERED: Rocuronium Bromide 10 MG/ML (10ML VIAL) ONE (11:25)
[2018-11-30] MEDS ORDERED: ceFAZolin Sodium (SDC) 2 GM/100 ML BAG ONE (13:45)
[2018-11-30] MEDS ORDERED: Fentanyl 100 MCG/2 ML VIAL ONE (15:14)
[2018-11-30] MEDS ORDERED: Lidocaine 2% Jelly 5 ML TUBE ONE (15:15)
[2018-11-30] MEDS ORDERED: Promethazine HCl 25 MG/ML VIAL SLOW IVP PRN (17:18)
[2018-11-30] MEDS ORDERED: Ondansetron HCl/PF 4 MG/2 ML Vial IVP PRN (17:18)
[2018-11-30] MEDS ORDERED: Promethazine HCl 25 MG/ML VIAL IM PRN (17:18)
[2018-11-30] MEDS: Tamsulosin HCl 0.4 MG CAP PO SCH (17:52)
--- NOTE | 2018-11-30 18:16 | RAD ---
RIGHT HIP: 11/30/18 INDICATIONS: Postop evaluation. Postop hip replacement. FINDINGS/IMPRESSION: Postoperative changes are noted. Right hip prosthesis has been placed. Components appear in adequate position. POS: JUN
[2018-11-30] MEDS: Simvastatin 5 MG TAB PO SCH (21:30)
[2018-11-30] MEDS: Mirtazapine 15 MG TAB PO SCH (21:35)
[2018-11-30] MEDS: CEFAZOLIN 2 GM in Sodium Chloride 0.9% 100 ML IVPB SCH (22:34)
--- NOTE | 2018-11-30 23:04 | PRG ---
DATE OF SERVICE: SUBJECTIVE: The patient is currently on the surgical floor. He is immediately postop from a right hip hemiarthroplasty. He tolerated this procedure well, though the did report that he had some agitation prior to his surgery and immediately postop. Currently, he is resting comfortably in bed. He is asleep. She reports that he did wake up a few times postoperatively to ask for sips of water, but otherwise has been sleeping mostly since he has returned from the operating room. She states that his pain is currently controlled. He has not asked for any additional pain medication. His vital signs are stable. He is afebrile. PLAN: Plan will be to continue supportive care once he is awake and able to tolerate p.o.s consistently. We will transition him to p.o. pain medications and discontinue his IV fluids and his IV pain medications. Tomorrow, he should begin working with Physical and Occupational Therapy. Also tomorrow, placement will be discussed. Job ID: [id number]
[2018-12-01] MEDS: Sodium Chloride 0.9% 1,000 ML IV SCH ×2 (04:42→05:30)
[2018-12-01] MEDS: Ketorolac Tromethamine 30 MG/ML VIAL IVP SCH (05:27)
[2018-12-01] MEDS: Levothyroxine Sodium 88 MCG TAB PO SCH (05:29)
[2018-12-01] MEDS: CEFAZOLIN 2 GM in Sodium Chloride 0.9% 100 ML IVPB SCH (05:29)
[2018-12-01 06:03] LABS: #Lymphocytes 0.5 thou/uL (1.20-3.40); #Monocytes 0.2 thou/uL (0.11-0.59); #Neutrophils 6.2 thou/uL (1.40-6.50); %Basophils 0.1 % (0.0-1.0); %Eosinophils 0.1 % (0.0-10.0); %Lymphocytes 7.1 % (21.0-51.0); %Monocytes 3.3 % (0.0-10.0); %Neutrophils 89.5 % (42.0-75.0); Hemoglobin 12.2 g/dL (14.0-18.0); Mean Corpuscular HGB CONC 34.8 g/dL (32.0-36.0); Mean Corpuscular Hemoglobin 33.5 pg (27.0-31.0); Mean Corpuscular Volume 96.1 fL (78.0-98.0); Platelet Count 104 thou/uL (130-400); RBC Distribution Width 10.8 % (11.5-14.5); Red Blood Cell (RBC) Count 3.64 mill/uL (4.70-6.10)
[2018-12-01 06:23] LABS: ALT (SGPT) 12 U/L (8-55); AST (SGOT) 32 U/L (5-34); Albumin 3.2 g/dL (3.4-4.8); Alkaline Phosphatase 35 U/L (40-150); Anion Gap 11 mmol/L (10-20); BUN (Urea Nitrogen) 25 mg/dL (8.4-25.7); Bilirubin, Total 0.5 mg/dL (0.2-1.2); Calc. Creatinine Clearance 62 mL/min (70-130); Calcium 8.7 mg/dL (7.8-10.44); Carbon Dioxide 21 mmol/L (23-31); Chloride 111 mmol/L (98-107); Estimated GFR-MDRD 79; Globulin 2.2 g/dL (2.4-3.5); Glucose 179 mg/dL (83-110); Potassium 4.1 mmol/L (3.5-5.1); Protein, Total 5.4 g/dL (5.8-8.1); Sodium 139 mmol/L (136-145)
[2018-12-01] MEDS ORDERED: Acetaminophen 500 MG TAB PO SCH (08:00)
[2018-12-01] MEDS: Atenolol 25 MG TAB PO SCH (08:43)
[2018-12-01] MEDS: Escitalopram Oxalate 20 mg Tablet PO SCH (08:43)
[2018-12-01] MEDS: Amlodipine 5 MG TAB PO SCH (08:45)
[2018-12-01] MEDS: Ascorbic Acid 500 mg Chewable Tablet PO SCH (08:45)
[2018-12-01] MEDS: Senokot S 8.6-50 MG TAB PO SCH ×2 (08:45→21:11)
[2018-12-01] MEDS: Multivitamin W/ Minerals 1 TAB PO SCH (08:46)
[2018-12-01] MEDS: Famotidine 20 MG TAB PO SCH ×2 (08:46→21:11)
[2018-12-01] MEDS: Folic Acid 1 MG TAB PO SCH (08:46)
[2018-12-01] MEDS: traMADol HCl 50 MG TAB PO SCH ×2 (08:46→14:42)
[2018-12-01] MEDS: Timolol 0.5% Ophth Soln 5 ml Bottle L EYE SCH ×2 (08:48→21:12)
[2018-12-01] MEDS: Polyethylene Glycol 3350 17 GM Packet PO SCH (08:50)
[2018-12-01] MEDS ORDERED: Aspirin 81 mg Enteric Coated Tablet PO SCH ×3 (09:00→21:00)
--- NOTE | 2018-12-01 10:01 | PRG ---
DATE OF SERVICE: 11/30/2018 SUBJECTIVE: This is an 88-year-old male, coming to evaluation of pain from right hip after a ground level fall at home. The patient is on IV pain medication. The patient is n.p.o. on midnight. This morning, his pain in relatively controlled. Vitals are stable. He will go to OR today for open reduction and internal fixation of the right hip fracture. OBJECTIVE: GENERAL: The patient is alert and oriented x3, in no acute distress. VITAL SIGNS: Temperature 98, heart rate 60, respiratory rate 15, O2 of 93%, blood pressure 150/76. LUNGS: Clear bilaterally. CARDIAC: Regular rate and rhythm. ABDOMEN: Soft and nondistended. Bowels sounds normal. EXTREMITIES: Neurovascularly intact. Limited range of motion from the right hip due to pain. Left lower extremity and upper extremity range motion normal. LABORATORY DATA: White blood count 7.6, hemoglobin 13.4. Sodium 140, potassium 3.6, magnesium 1.9, phosphorus 3.4, creatinine is 0.88. ASSESSMENT: 1. Status post fall. 2. Right hip fracture. 3. History of stroke, hypertension, depression, benign prostatic hyperplasia, hernia repair. PLAN: The patient will go to the OR for ORIF of right hip fracture today. Continue pain control. Continue gastritis and DVT prophylaxis. We will switch to pain control medication p.o. after the surgery and regular diet Job ID: [id number] MTDD
[2018-12-01] MEDS: Ibuprofen 600 MG TAB PO SCH ×3 (11:32→23:09)
[2018-12-01] MEDS: CEFAZOLIN 2 GM, Admixture Fee 1 EACH in Sodium Chloride 0.9% 100 ML IVPB SCH ×2 (14:19→14:20)
[2018-12-01] MEDS: Tamsulosin HCl 0.4 MG CAP PO SCH (17:45)
[2018-12-01] MEDS: Acetaminophen 500 MG TAB PO SCH ×2 (17:45→23:08)
--- NOTE | 2018-12-01 18:24 | PRG ---
DATE OF SERVICE: 12/01/2018 SUBJECTIVE: This is an 88-year-old male patient, admitted for the right hip pain after a ground-level fall at home. The patient went through ORIF of right hip fracture yesterday. Postoperatively, the patient is doing better. His pain is well controlled. He developed no fever. Blood pressure is stable. No complaints overnight. The patient makes good urine. He is able to tolerate a regular diet. OBJECTIVE: GENERAL: The patient is alert and oriented x3. Nurse reports the patient had been overexcited, talking fast and nonstop with relevant information , VITAL SIGNS: Stable. No respiratory distress. LUNGS: Clear bilaterally. HEART: Regular rate and rhythm. ABDOMEN: Soft and nondistended. EXTREMITIES: Limited range of motion from the right hip. Two upper extremities ; range of motion normal, neurovascularly intact. Left extremity; range of motion normal, neurovascularly intact. DIAGNOSES: 1. Status post fall. 2. Right hip fracture, status post open reduction and internal fixation of right hip fracture, postoperative day 1. 3. History of old stroke, hypertension, depression, BPH, hernia repair, and possible alcoholism. PLAN: 1. Continue supportive care. 2. Continue pain control. 3. Continue DVT and gastritis prophylaxis. 4. Due to the patient's slightly change on his behavior, stop tramadol, and he will be on Tylenol and ibuprofen p.o. for pain control and morphine p.r.n. Job ID: [id number] MTDD
[2018-12-01] MEDS: Simvastatin 5 MG TAB PO SCH (21:10)
[2018-12-01] MEDS: Mirtazapine 15 MG TAB PO SCH (21:11)
[2018-12-01] MEDS: Cyclobenzaprine 10 MG TAB PO PRN (21:20)
[2018-12-01] MEDS ORDERED: Melatonin 3 MG TAB PO SCH (21:30)
[2018-12-02] MEDS ORDERED: Lorazepam 1 MG TAB PO SCH (00:45)
--- NOTE | 2018-12-02 01:06 | PRG ---
DATE OF SERVICE: SUBJECTIVE: The patient remains on the surgical floor. He is status post a fall, in which he sustained a right hip fracture. He has undergone surgical repair of this yesterday. Today, he is doing better. His does state that at times he will begin to speak excessively fast and long-winded. The Day Team has stopped his tramadol, which is most likely the cause for this, but we assured her that we will continue to monitor this and also assured her that this was not a symptom of a stroke or anything concerning like that. Otherwise, the patient is tolerating his diet. His pain is being controlled. He walked 150 feet with therapy today. OBJECTIVE: VITAL SIGNS: Stable. The patient is afebrile. GENERAL: The patient is resting comfortably in bed. He is awake, alert, and conversant. He is at times very talkative, but appears to be appropriate. LUNGS: Clear to auscultation. ABDOMEN: Soft with positive bowel sounds. EXTREMITIES: Extremities are neurovascularly intact. ASSESSMENT/PLAN: 1. Status post ground-level fall. 2. Status post open reduction and internal fixation of right hip fracture. Plan will be to continue supportive care, physical and occupational therapy, add melatonin to his medications and avoid his narcotic pain medications unless absolutely necessary. Otherwise, we will wait for final placement decision. Job ID: [id number]
[2018-12-02 05:09] LABS: Bilirubin Negative (Negative); Blood, Urine Negative (Negative); Clarity Clear (Clear); Glucose, Urine (Dipstick) Normal (Negative); Leukocyte Negative Leu/uL (Negative); Nitrite Negative (Negative); Protein, Urine (Dipstick) Negative (Neg-Trace); RBC/HPF 0-3 HPF (0-3); Squamous Epithelial None Seen HPF (0-3); Urobilinogen Normal mg/dL (Less than 2); WBC/HPF 0-3 HPF (0-3)
[2018-12-02 05:15] LABS: Bacteria/HPF 1+ HPF (None Seen)
[2018-12-02 05:17] LABS: Urine Culture Reflex No No
[2018-12-02] MEDS: Ibuprofen 600 MG TAB PO SCH ×4 (07:03→23:53)
[2018-12-02] MEDS: Acetaminophen 500 MG TAB PO SCH ×4 (07:03→23:53)
[2018-12-02] MEDS ORDERED: Bromfenac Sodium [Prolensa] L EYE SCH (09:00)
[2018-12-02] MEDS: Timolol 0.5% Ophth Soln 5 ml Bottle L EYE SCH ×2 (09:37→21:05)
[2018-12-02] MEDS: Levothyroxine Sodium 88 MCG TAB PO SCH (09:37)
[2018-12-02] MEDS: hydrALAZINE 20 MG/ML VIAL SLOW IVP PRN ×2 (09:47→21:24)
[2018-12-02] MEDS: Famotidine 20 MG TAB PO SCH ×2 (09:52→21:04)
[2018-12-02] MEDS: Polyethylene Glycol 3350 17 GM Packet PO SCH (09:52)
[2018-12-02] MEDS: Ubidecarenone 50 MG CAP PO SCH (09:52)
[2018-12-02] MEDS: Aspirin 81 mg Enteric Coated Tablet PO SCH (09:52)
[2018-12-02] MEDS: Cyanocobalamin (Vitamin B-12) 1,000 MCG TAB PO SCH (09:52)
[2018-12-02] MEDS: Ascorbic Acid 500 mg Chewable Tablet PO SCH (09:53)
[2018-12-02] MEDS: Amlodipine 5 MG TAB PO SCH (09:53)
[2018-12-02] MEDS: Multivitamin W/ Minerals 1 TAB PO SCH (09:53)
[2018-12-02] MEDS: Atenolol 25 MG TAB PO SCH (09:53)
[2018-12-02] MEDS: Folic Acid 1 MG TAB PO SCH (09:54)
[2018-12-02] MEDS: Senokot S 8.6-50 MG TAB PO SCH ×2 (09:54→21:04)
[2018-12-02] MEDS: Escitalopram Oxalate 20 mg Tablet PO SCH (09:54)
--- NOTE | 2018-12-02 16:13 | PRG ---
DATE OF SERVICE: 12/02/2018 SUBJECTIVE: This is an 88-year-old gentleman, who came in to evaluation of right hip after a ground-level fall at home. The patient went through ORIF of right hip fracture. Postop, the patient is doing good regard to pain control. He developed no fever, no shortness of breath. His complaining that he is overexcited. His mental status changed from neglect to excited very fast. OBJECTIVE: GENERAL: The patient is alert and oriented x3, delirium. VITAL SIGNS: Blood pressure 153/77, temperature 98, pulse 74, respiratory rate 16, and O2 sat 96% room air. LUNGS: Clear bilaterally. HEART: Regular rate and rhythm. ABDOMEN: Soft and nondistended. EXTREMITIES: Neurovascularly intact. NEUROLOGIC: The patient is waxing and waning between calm and overexcited, talkative. DIAGNOSES: 1. Delirium, status post traumatic. 2. Status post ground-level fall. 3. Postop ORIF from the right hip fracture. PLAN: 1. Continue supportive care. 2. Continue pain control. 3. Continue DVT and gastritis prophylaxis. 4. Start Seroquel at night time. Continue to monitor patient's psychology sign and symptom. Job ID: [id number] MTDD
[2018-12-02] MEDS: Tamsulosin HCl 0.4 MG CAP PO SCH (17:40)
[2018-12-02] MEDS ORDERED: Melatonin 3 MG TAB PO SCH (21:00)
[2018-12-02] MEDS: Simvastatin 5 MG TAB PO SCH (21:03)
[2018-12-02] MEDS: Mirtazapine 15 MG TAB PO SCH (21:04)
--- NOTE | 2018-12-03 03:36 | PRG ---
DATE OF SERVICE: 12/03/2018 SUBJECTIVE: The patient remains on the surgical floor. Last night, he had issues with a little bit of agitation and getting out of bed without assistance. During this evening, he was started on Seroquel in addition to his melatonin which has greatly improved his agitation. OBJECTIVE: VITAL SIGNS: Stable. The patient remained afebrile. GENERAL: The patient is resting comfortably in bed. He is definitely more calm this evening when I seen him compared to last night. He has continued to work with Physical and Occupational Therapy. ASSESSMENT AND PLAN: 1. Status post ground level fall. 2. Status post open reduction and internal fixation of right hip fracture. Plan will be to continue supportive care, physical and occupational therapy, and await placement decision. Job ID: [id number]
[2018-12-03] MEDS: hydrALAZINE 20 MG/ML VIAL SLOW IVP PRN (04:31)
[2018-12-03] MEDS: Ibuprofen 600 MG TAB PO SCH ×2 (06:03→12:18)
[2018-12-03] MEDS: Levothyroxine Sodium 88 MCG TAB PO SCH (06:05)
[2018-12-03] MEDS: Acetaminophen 500 MG TAB PO SCH ×2 (06:05→11:48)
[2018-12-03 07:21] LABS: Anion Gap 10 mmol/L (10-20); BUN (Urea Nitrogen) 22 mg/dL (8.4-25.7); Calc. Creatinine Clearance 75 mL/min (70-130); Calcium 8.9 mg/dL (7.8-10.44); Carbon Dioxide 23 mmol/L (23-31); Chloride 111 mmol/L (98-107); Estimated GFR-MDRD Greater than 90; Glucose 92 mg/dL (83-110); Phosphorus 3.1 mg/dL (2.3-4.7); Potassium 3.8 mmol/L (3.5-5.1); Sodium 140 mmol/L (136-145)
[2018-12-03] MEDS ORDERED: PHOS-NAK 1 PKT PACK PO SCH (07:30)
[2018-12-03] MEDS: Timolol 0.5% Ophth Soln 5 ml Bottle L EYE SCH (08:23)
[2018-12-03] MEDS: Ubidecarenone 50 MG CAP PO SCH (08:24)
[2018-12-03] MEDS: Amlodipine 5 MG TAB PO SCH (08:24)
[2018-12-03] MEDS: Famotidine 20 MG TAB PO SCH (08:24)
[2018-12-03] MEDS: Ascorbic Acid 500 mg Chewable Tablet PO SCH (08:24)
[2018-12-03] MEDS: Cyanocobalamin (Vitamin B-12) 1,000 MCG TAB PO SCH (08:24)
[2018-12-03] MEDS: Senokot S 8.6-50 MG TAB PO SCH (08:24)
[2018-12-03] MEDS: Aspirin 81 mg Enteric Coated Tablet PO SCH (08:24)
[2018-12-03] MEDS: Folic Acid 1 MG TAB PO SCH (08:24)
[2018-12-03] MEDS: Escitalopram Oxalate 20 mg Tablet PO SCH (08:25)
[2018-12-03] MEDS: Polyethylene Glycol 3350 17 GM Packet PO SCH (08:25)
[2018-12-03] MEDS: Multivitamin W/ Minerals 1 TAB PO SCH (08:25)
[2018-12-03] MEDS: Atenolol 25 MG TAB PO SCH (08:25)
[2018-12-03 11:33] VITALS: BP 171/79; TEMP 97.8
--- NOTE | 2018-12-04 05:29 | DIS ---
DATE OF ADMISSION: 11/29/2018 DATE OF DISCHARGE: 12/03/2018 ADMITTING DIAGNOSES: Status post fall, right hip fracture. History of stroke, hypertension, depression, benign prostatic hyperplasia, hernia repair. DISCHARGE DIAGNOSES: Status post mechanical fall, right hip fracture with hemiarthroplasty right hip. History of hypertension, depression, benign prostatic hyperplasia, inguinal hernia repair. PROCEDURES: Right hip hemiarthroplasty. HOSPITAL COURSE: This is an 88-year-old gentleman who comes in for evaluation of pain from right hip after ground-level fall at home. The patient was diagnosed with right hip fracture. He underwent right hip hemiarthroplasty. Postop, the patient is doing good regarding to pain, and he is able to tolerate regular diet. He developed no fever or shortness of breath. His and nurse reported he developed mild hallucination. His hallucination waxes and wanes. He was put on Seroquel 75 mg at night. After that, he was doing better. He slept better. Delirium resolved. He is able to participate with PT/OT. DISCHARGE DISPOSITION: Rehabilitation. DISCHARGE CONDITION: Satisfactory. PHYSICAL EXAMINATION: GENERAL: The patient is alert and oriented x3, in no acute distress. VITAL SIGNS: Temperature 97, heart rate 60, respiratory rate 16, O2 saturation 96% on room air, and blood pressure 170/78. LUNGS: Clear bilaterally. HEART: Regular rate and rhythm. ABDOMEN: Soft, nondistended. No rebound. Bowel sound normal. EXTREMITIES: Neurovascularly intact x4. Range of motion of the right hip is limited due to pain. DISCHARGE PLAN: 1. The patient is to be continued with PT/OT in rehab facility. 2. The patient is to continue all of his medication regimen. 3. The patient is to follow up Dr. Xie as needed. 4. The patient is to follow up with Dr. Alberts in 10 days after being discharged from rehabilitation facility. DISCHARGE MEDICATIONS: 1. Tylenol. 2. Amlodipine. 3. Vitamin C. 4. Aspirin. 5. Atenolol. 6. Vitamin D3. 7. Multivitamin. 8. Lexapro. 9. Famotidine. 10. Ibuprofen. 11. Synthroid. 12. Melatonin. 13. Mirtazapine. 14. Seroquel. 15. MiraLAX. 16. Tamsulosin. 17. Timolol maleate. 18. Ubidecarenone. 19. Lexapro. 20. [place] as needed. 21. Hydrocortisone lotion. Job ID: [id number] MTDD
--- NOTE | 2018-12-04 10:06 | OP ---
DATE OF PROCEDURE: 11/30/2018 PREOPERATIVE DIAGNOSIS: Right femoral neck fracture, displaced. POSTOPERATIVE DIAGNOSIS: Right femoral neck fracture, displaced. PROCEDURE: Right hip hemiarthroplasty. ANESTHESIA: General. MOLD CHECKER: Gaudencio Sheffield PA-C IMPLANTS: [employer] system was used with a size 5 [place] femoral stem, a 28 x 51 bipolar cup and a +8.5 Articul/Serafin femoral head. COMPLICATIONS: None. DRAINS: None. SPECIMEN: None. INDICATIONS: The patient is an 88-year-old gentleman, status post ground level fall while moving a hose at his house, sustaining a right femoral neck fracture. Upon initial evaluation in the emergency room, x-rays demonstrated this fracture near the base of the femoral neck. With the displacement as well as patient's age, we have decided to proceed with hemiarthroplasty. Informed consent has been obtained. I believe all questions have been answered. Risks and benefits have been discussed. Risks include, but are not limited to bleeding, infection, nerve injury, DVT, PE, dislocation, loss of limb or life. He appears to understand and does wish to proceed. DESCRIPTION OF PROCEDURE: The patient was brought to the operating room, and a time-out was performed followed by induction of general anesthesia. The patient was then placed in the left lateral decubitus position, and a sterile prep and drape was performed in the right lower extremity. Next, a curvilinear incision was made centered over the tip of the greater trochanter. After skin was sharply incised, dissection was carried down through the subcutaneous fat down to the level of the tensor fascia and fascia tawny. This structure was incised in line with the skin incision, reflected anteriorly and posteriorly revealing the lateral aspect of the proximal femur. The leg was brought into slight internal rotation, and the trochanteric bursa was swept off the short external rotators. An elevator was passed under the abductors and then the piriformis was identified and released and tagged and reflected posteriorly. The superior and inferior gemelli as well as the obturator internus were also released and displaced posteriorly. At this point, the femoral capsule could be identified. The hip was opened with a T-capsulotomy with the leaflets tagged for eventual closure. Next, a T-handle awl was used to remove the femoral head without difficulty. This was measured to determine the appropriate bipolar head. Next, an oscillating saw was used to make a femoral neck cut just distal to the fracture. Next, the canal was prepared for starting with a box chisel followed by a localizing T-handle awl to identify the canal path. A lateralizing reamer was then utilized and then further T-handle awls were passed down the shaft until a size somewhere between 5 and 6 felt to give good distal fit. Broaching was started at size 3 and continued up to size 5, which gave good proximal fit and fill, and as such, a trial reduction was performed on the size 5 broach. A +8.5 mm head gave good protestant of leg lengths and stability at the hip. The hip was then again dislocated. The broach was removed from the canal, and the canal and acetabulum were thoroughly irrigated with 3 L of normal saline using Pulsavac. The final size 5 femoral component was inserted into the proximal femur. This was followed by insertion of the bipolar head onto the stem. The hip was reduced and found to have excellent stability. Next, wound closure was performed with #2 Vicryl was used to reapproximate the joint capsule, #2 Vicryl was also used to reapproximate the piriformis. #1 Vicryl was used for the tensor fascia and fascia tawny followed by 0 Vicryl for the Adrien fascia, 2-0 Vicryl subcutaneously, and then brent for the skin. Xeroform gauze and tape dressing were applied to the right lateral thigh, and the patient was transferred to recovery room in stable condition. There were no complications. The patient tolerated the procedure well. Job ID: [id number]
== END 2018-12-03 14:36 | DRG 470 ==
LOC: ERS 15:38 → SJJU 16:45
PROVIDERS: ADMIT Surgery; ATTEND Surgery
PROC: 0SRR0JZ Replacement of Right Hip Joint, Femoral Surface with Synthetic Substitute, Open Approach (ICD-10-PCS; principal; 2018-11-30)
DX: S72.001A Fracture of unspecified part of neck of right femur, initial encounter for closed fracture (principal); I69.354 Hemiplegia and hemiparesis following cerebral infarction affecting left non-dominant side; R44.3 Hallucinations, unspecified; S50.311A Abrasion of right elbow, initial encounter; F32.9 Major depressive disorder, single episode, unspecified; N40.0 Benign prostatic hyperplasia without lower urinary tract symptoms; I10 Essential (primary) hypertension; W01.0XXA Fall on same level from slipping, tripping and stumbling without subsequent striking against object, initial encounter; R41.0 Disorientation, unspecified; E78.5 Hyperlipidemia, unspecified; Z91.09 Other allergy status, other than to drugs and biological substances; I69.328 Other speech and language deficits following cerebral infarction; Y93.89 Activity, other specified; Y92.89 Other specified places as the place of occurrence of the external cause; Z90.49 Acquired absence of other specified parts of digestive tract; Z95.5 Presence of coronary angioplasty implant and graft
CPT/HCPCS: 36415; 70450; 71045; 72170; 80048; 80053; 81001; 83735; 84100; 85025; 93005; 96374; 96375; 96376; G0390; J0131; J0360; J0690; J1885; J2270; J2405; J3010; J3490; S0028